=== PATIENT | male | born 1990 | race Caucasian/White ===

== ENCOUNTER 2024-06-09 15:13 | Emergency (ER) | payer BC ==
[~2024-06-09] VITALS: Ht 175.3 cm; Wt 92.6 kg
[2024-06-09 18:45] VITALS: BP 139/62; TEMP 97.9; O2SAT 100
== END 2024-06-09 18:52 | disposition home or self-care (01) ==
LOC: M ED 15:13
DX: S42.021A Displaced fracture of shaft of right clavicle, initial encounter for closed fracture (principal); Y92.9 Unspecified place or not applicable; Y93.9 Activity, unspecified; Y99.9 Unspecified external cause status; V86.52XA Driver of snowmobile injured in nontraffic accident, initial encounter